=== PATIENT | male | born 1980 | race Two or more races ===

== ENCOUNTER 2016-12-20 17:05 | Emergency (ER) | payer OTHER ==
[2016-12-20 17:16] VITALS: BP 129/96; PULSE 76; RESP 16; TEMP 98.4; O2SAT 95
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
== END 2016-12-20 19:02 | disposition home or self-care (01) ==
DX: S63.602A Unspecified sprain of left thumb, initial encounter (principal); V49.40XA Driver injured in collision with unspecified motor vehicles in traffic accident, initial encounter; Y92.410 Unspecified street and highway as the place of occurrence of the external cause; Y99.8 Other external cause status; Y93.89 Activity, other specified